=== PATIENT | male | born 1985 | race Caucasian/White ===

== ENCOUNTER 2020-12-24 22:00 | Emergency (ER) | payer BC ==
--- NOTE | 2020-12-24 22:55 | EDM.PDOC ---
ED HPI GENERAL MEDICAL PROBLEM - General Chief Complaint: General Stated Complaint: HEART RACING,CHEST PAIN/BURNING, CHILLS Time Seen by Provider: 12/24/20 22:30 Source of Information: Reports: Patient, Family History Limitations: Reports: No Limitations (Initially difficult to get a history because of his panic attack and hyperventilation) - History of Present Illness INITIAL COMMENTS - FREE TEXT/NARRATIVE: 35-year-old male who had a few alcoholic drinks tonight, was playing cards and ingested 1 gummy bear with a high concentration THC. 1 hour after he took the bear, he started to feel anxious and ill. He took a hot shower and sat in the sauna and it did not help, then he had problems breathing and started to hyperventilate. He then developed chest cramping and asked his to take him to the emergency room. When he arrived he was hyperventilating, was mildly hypertensive and tachycardic and extremely anxious. Over the course of 1/2-hour he calmed down without treatment, when I saw him he was much improved but very tired. Onset: Sudden (Symptoms started fairly suddenly around 830 just under 3 hours ago) Location: Reports: Generalized Associated Symptoms: Reports: Chest Pain, Malaise, Shortness of Breath. Denies: Confusion, Fever/Chills, Headaches denies pain Pain Score (Numeric/FACES): 0 - Related Data Allergies Allergy/AdvReac Type Severity Reaction Status Date / Time No Known Allergies Allergy Verified 12/24/20 22:25 Home Meds: Home Meds NK [No Known Home Meds] 12/25/20 [History] Past Medical History - Past Surgical History Male Surgical History: Reports: Vasectomy, Other (See Below) Other Male Surgeries/Procedures: epididimytits Social & Family History - Tobacco Use Tobacco Use Status *Q: Never Tobacco User - Recreational Drug Use Recreational Drug Use: No ED ROS GENERAL - Review of Systems Review Of Systems: See Below Constitutional: Reports: Malaise. Denies: Fever, Chills HEENT: Denies: Throat Pain, Vision Change Respiratory: Reports: Shortness of Breath Cardiovascular: Reports: Chest Pain, Palpitations GI/Abdominal: Denies: Abdominal Pain, Nausea, Vomiting Musculoskeletal: Reports: No Symptoms Skin: Reports: Diaphoresis Neurological: Denies: Confusion, Headache Psychiatric: Reports: Anxiety ED EXAM, GENERAL - Physical Exam Exam: See Below Exam Limited By: No Limitations General Appearance: Alert, No Apparent Distress, Other (By the time I saw the patient he was calm, appeared tired) Eye Exam: Bilateral Eye: Normal Inspection Respiratory/Chest: No Respiratory Distress, Lungs Clear Cardiovascular: Regular Rate, Rhythm. No: Tachycardia GI/Abdominal: Soft, Non-Tender Extremities: Normal Inspection. No: Pedal Edema Neurological: Alert, Oriented, Inattentive (Somewhat inattentive, acting sedated), Slow to Respond Psychiatric: Depressed Mood, Flat Affect Skin Exam: Warm, Dry Course - Vital Signs Last Recorded V/S: Last Vital Signs Temp 97.7 F 12/24/20 22:26 Pulse 100 12/24/20 22:26 Resp 16 12/24/20 22:26 BP 152/82 H 12/24/20 22:26 Pulse Ox 100 12/24/20 22:26 - Orders/Labs/Meds Labs: Laboratory Tests 12/24/20 12/24/20 12/24/20 Range/Units 23:00 23:00 23:00 WBC 10.4 (4.5-11.0) K/uL RBC 4.52 (4.30-5.90) M/uL Hgb 13.7 (12.0-15.0) g/dL Hct 39.6 L (40.0-54.0) % MCV 88 (80-98) fL MCH 30 (27-31) pg MCHC 35 (32-36) % Plt Count 227 (150-400) K/uL Neut % (Auto) 80 H (36-66) % Lymph % (Auto) 13 L (24-44) % [place] % (Auto) 6 (2-6) % Eos % (Auto) 1 L (2-4) % Baso % (Auto) 0 (0-1) % Sodium 143 (140-148) mmol/L Potassium 3.3 L (3.6-5.2) mmol/L Chloride 103 (100-108) mmol/L Carbon Dioxide 23 (21-32) mmol/L Anion Gap 20.3 H (5.0-14.0) mmol/L BUN 19 H (7-18) mg/dL Creatinine 1.4 H (0.8-1.3) mg/dL Est Cr Clr Drug Dosing 80.06 mL/min Estimated GFR (MDRD) 57 L (>60) Glucose 149 H (74-106) mg/dL Calcium 9.0 (8.5-10.1) mg/dL Total Bilirubin 0.8 (0.2-1.0) mg/dL AST 13 L (15-37) U/L ALT 20 (12-78) U/L Alkaline Phosphatase 65 (46-116) U/L Total Protein 7.0 (6.4-8.2) g/dL Albumin 4.1 (3.4-5.0) g/dL Globulin 2.9 (2.3-3.5) g/dL Albumin/Globulin Ratio 1.4 (1.2-2.2) Ethyl Alcohol < 3 mg/dL - Re-Assessments/Exams Free Text/Narrative Re-Assessment/Exam: 12/24/20 22:55 Patient said he was "embarrassed" and was feeling better. CBC CMP were obtained and he was observed. 12/24/20 23:54 Patient slowly continued to feel better, vitals stabilized. Labs all returned basically normal, mild dehydration is possible with a creatinine of 1.4 and BUN of 19. EtOH was 0. Encouraged the patient to stay hydrated and increase activity as tolerated. Departure - Departure Time of Disposition: 00:03 Disposition: Home, Self-Care 01 Clinical Impression: Marijuana intoxication Qualifiers: Complication of substance-induced condition: with perceptual disturbance Qualified Code(s): F12.922 - Cannabis use, unspecified with intoxication with perceptual disturbance - Discharge Information Instructions: What You Need to Know About Marijuana Use Referrals: PCP,None [Primary Care Provider] - Forms: ED Department Discharge Care Plan Goals: Rest tonight, stay hydrated, and increase activity as tolerated. Recheck in the next few days if not improving satisfactorily. Sepsis Event Note (ED) - Evaluation Sepsis Screening Result: No Definite Risk - Focused Exam Vital Signs: Vital Signs Temp Pulse Resp BP Pulse Ox 12/24/20 22:26 97.7 F 100 16 152/82 H 100 12/24/20 22:20 97.7 F 100 16 152/82 H 100
== END 2020-12-25 00:14 | disposition home or self-care (01) ==
LOC: JP.ED 22:00
DX: F12.922 Cannabis use, unspecified with intoxication with perceptual disturbance (principal)
CPT/HCPCS: 36415; 80053; 80307; 85025; 99284